=== PATIENT | male | born 2000 | race African-American/Black ===

== ENCOUNTER 2020-05-16 01:46 | Emergency (ER) | payer OTHER ==
[~2020-05-16] VITALS: Ht 170.2 cm; Wt 65.9 kg
[2020-05-16] MEDS ORDERED: no (01:59)
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
[2020-05-16] MEDS ORDERED: IBUP-1022 PO (03:58)
[2020-05-16] MEDS ORDERED: NALOXONE 2MG/2ML SYRINGE (J2310 PER 1MG) IM STA (04:38)
[2020-05-16] MEDS ORDERED: NALOXONE 2MG/2ML SYRINGE (J2310 PER 1MG) IV STA (04:39)
[2020-05-16 04:45] VITALS: BP 143/90
== END 2020-05-16 05:23 | disposition home or self-care (01) ==
LOC: M ED 01:46
DX: F11.10 Opioid abuse, uncomplicated (principal); S02.2XXA Fracture of nasal bones, initial encounter for closed fracture; V49.49XA Driver injured in collision with other motor vehicles in traffic accident, initial encounter; Y92.410 Unspecified street and highway as the place of occurrence of the external cause; F12.20 Cannabis dependence, uncomplicated
CPT/HCPCS: 70450; 70486; 72125; 82077; 96374; 99284; J2310